=== PATIENT | female | born 1975 | race Caucasian/White ===

== ENCOUNTER 2019-01-27 06:18 | Emergency (ER) | payer SELFPAY ==
--- NOTE | 2019-01-27 06:38 | EDM.PDOC ---
<Eduardo Friedman - Last Filed: 01/27/19 09:24> ED HPI GENERAL MEDICAL PROBLEM - General Chief Complaint: Gastrointestinal Problem Stated Complaint: [facility] Time Seen by Provider: 01/27/19 06:30 - Related Data Allergies Allergy/AdvReac Type Severity Reaction Status Date / Time No Known Allergies Allergy Verified 01/27/19 06:27 Home Meds: Home Meds . [No Known Home Meds] 01/27/19 [History] Course - Vital Signs Last Recorded V/S: Last Vital Signs Temp 96.5 F 01/27/19 06:22 Pulse 82 01/27/19 06:22 Resp 20 01/27/19 06:22 BP 99/64 01/27/19 06:22 Pulse Ox 100 01/27/19 06:22 Orthostatic Blood Pressure [ 99/68 Sitting] Orthostatic Blood Pressure [ 88/60 Supine] - Orders/Labs/Meds Orders: Active Orders 24 hr Category Date Time Status Orthostatic Vital Signs [RC] ASDIRECTED Care 01/27/19 06:58 Active Labs: Laboratory Tests 01/27/19 01/27/19 01/27/19 Range/Units 07:00 07:00 07:00 WBC 11.47 H (3.98-10.04) K/mm3 RBC 4.07 (3.98-5.22) M/mm3 Hgb 12.6 (11.2-15.7) gm/L Hct 36.6 (34.1-44.9) % MCV 89.9 (79.4-94.8) fl MCH 31.0 (25.6-32.2) pg MCHC 34.4 (32.2-35.5) g/dl RDW Std Deviation 39.7 (36.4-46.3) fL Plt Count 181 L (182-369) K/mm3 MPV 9.7 (9.4-12.3) fl Neut % (Auto) 92.2 H (34.0-71.1) % Lymph % (Auto) 3.5 L (19.3-51.7) % Harmon % (Auto) 3.7 L (4.7-12.5) % Eos % (Auto) 0.3 L (0.7-5.8) Baso % (Auto) 0.1 (0.1-1.2) % Neut # (Auto) 10.59 H (1.56-6.13) K/mm3 Lymph # (Auto) 0.40 L (1.18-3.74) K/mm3 Harmon # (Auto) 0.42 H (0.24-0.36) K/mm3 Eos # (Auto) 0.03 L (0.04-0.36) K/mm3 Baso # (Auto) 0.01 (0.01-0.08) K/mm3 Manual Slide Review Abnormal smear Sodium 141 (136-145) mEq/L Potassium 3.5 (3.5-5.1) mEq/L Chloride 106 (98-107) mEq/L Carbon Dioxide 26 (21-32) mEq/L Anion Gap 12.5 (5-15) BUN 12 (7-18) mg/dL Creatinine 0.6 (0.55-1.02) mg/dL Est Cr Clr Drug Dosing 95.42 mL/min Estimated GFR (MDRD) > 60 (>60) mL/min BUN/Creatinine Ratio 20.0 H (14-18) Glucose 112 H (74-106) mg/dL Calcium 8.2 L (8.5-10.1) mg/dL Total Bilirubin 0.5 (0.2-1.0) mg/dL AST 20 (15-37) U/L ALT 23 (14-59) U/L Alkaline Phosphatase 55 (46-116) U/L Total Protein 6.2 L (6.4-8.2) g/dl Albumin 3.5 (3.4-5.0) g/dl Globulin 2.7 gm/dL Albumin/Globulin Ratio 1.3 (1-2) Lipase 139 (73-393) U/L HCG, Qual Negative (NEGATIVE) Meds: Medications Discontinued Medications Generic Name Dose Route Start Last Admin Trade Name Freq PRN Reason Stop Dose Admin Sodium Chloride 1,000 mls @ 1,000 mls/hr 01/27/19 06:45 01/27/19 06:49 Normal Saline IV 1,000 mls/hr ASDIRECTED [facility] Administration - Re-Assessments/Exams Free Text/Narrative Re-Assessment/Exam: 01/27/19 09:[address] Mcleod. Her WBC was slightly elevated at 11.47. Her Hgb was normal at 12.6. Her HCG was negative. Her lipase was negative. She feels much better. She got up and walked around and she is comfortable leaving. She will be in an air conditioned car today and then a cabin. Departure - Departure Time of Disposition: 09:30 Disposition: Home, Self-Care 01 Condition: Good Clinical Impression: Nausea & vomiting Qualifiers: Vomiting type: unspecified Vomiting Intractability: non-intractable Qualified Code(s): R11.2 - Nausea with vomiting, unspecified Syncope Qualifiers: Syncope type: unspecified Qualified Code(s): R55 - Syncope and collapse - Discharge Information *PRESCRIPTION DRUG MONITORING PROGRAM REVIEWED*: Not Applicable *COPY OF PRESCRIPTION DRUG MONITORING REPORT IN PATIENT [place]: Not Applicable Instructions: Vomiting, Adult, Nausea, Adult, [id number], Syncope, Easy-to- Read Referrals: PCP,Not In Area [Primary Care Provider] - Forms: ED Department Discharge Additional Instructions: Drink plenty of fluids today. Get some rest and try to stay out of the heat for a couple days. Please seek help if you feel worse. - My Orders Last 24 Hours: My Active Orders 01/27/19 06:58 Orthostatic Vital Signs [RC] ASDIRECTED - Assessment/Plan Last 24 Hours: My Active Orders 01/27/19 06:58 Orthostatic Vital Signs [RC] ASDIRECTED <Eduardo Mcleod - Last Filed: 01/27/19 19:07> ED HPI GENERAL MEDICAL PROBLEM - General Source of Information: Reports: Patient History Limitations: Reports: No Limitations - History of Present Illness INITIAL COMMENTS - FREE TEXT/NARRATIVE: 43-year-old female. She was outside all day yesterday though she says she was drinking lots of fluids. She and her family have been camping in [place]. Apparently this morning around 2 AM she awoke felt nauseated when out of the tent and fainted. When she awoke she had nausea and vomiting and also diarrhea. Her came out and cleaned her up she had more nausea and vomiting. And he brought her inside the tent while lying down she passed out twice. He then had some more nausea vomiting and diarrhea in the tent. An ambulance was called and they brought her to the ER. The patient doesn't think she is dehydrated however she says she has a very sensitive stomach. Normally she eats something abnormal she gets cramping but she had no cramping with nausea and vomiting and diarrhea. She does have gluten sensitivity however it doesn't normally cause nausea and vomiting or diarrhea just cause abdominal cramps and headache. When she arrived in the ER her blood pressure was 90/56. She apparently had some additional stool while she was being transported to the ER by the ambulance. She denies any recent illnesses no colds no cough no fever or chills. She denies being because she uses a contraceptive. No history of alcohol consumption or pancreatic problems. Past Medical History [employer] History: Reports: Social & Family History - Tobacco Use Smoking Status *Q: Never Smoker - Caffeine Use Caffeine Use: Reports: None - Recreational Drug Use Recreational Drug Use: No ED ROS GENERAL - Review of Systems Review Of Systems: See Below Constitutional: Reports: Malaise, Fatigue. Denies: Fever, Chills HEENT: Reports: No Symptoms Respiratory: Denies: Shortness of Breath, Cough Cardiovascular: Denies: Chest Pain Endocrine: Reports: No Symptoms GI/Abdominal: Reports: Diarrhea, Nausea, Vomiting. Denies: Abdominal Pain : Denies: Dysuria Musculoskeletal: Reports: No Symptoms Skin: Reports: No Symptoms Neurological: Reports: No Symptoms Psychiatric: Reports: No Symptoms Hematologic/Lymphatic: Reports: No Symptoms ED EXAM, GI/ABD - Physical Exam Exam: See Below Exam Limited By: No Limitations General Appearance: Alert, WD/WN, No Apparent Distress, Other (She denies any nausea presently her abdominal cramps) Eyes: Bilateral: Normal Appearance Ears: Normal External Exam, Normal Canal, Normal TMs Nose: Normal Inspection Throat/Mouth: Normal Inspection, Normal Lips, Normal Voice, No Airway Compromise , Other (Mucous membranes are moist) Head: Normocephalic Neck: Supple Respiratory/Chest: No Respiratory Distress, Lungs Clear, Normal Breath Sounds Cardiovascular: Regular Rate, Rhythm, No Murmur. No: Tachycardia GI/Abdominal Exam: Soft, Non-Tender Back Exam: Full Range of Motion Extremities: Normal Inspection, Normal Range of Motion Neurological: Alert, Oriented Psychiatric: Normal Affect, Normal Mood Skin Exam: Warm, Dry Course - Orders/Labs/Meds Labs: Laboratory Tests 01/27/19 01/27/19 01/27/19 Range/Units 07:00 07:00 07:00 WBC 11.47 H (3.98-10.04) K/mm3 RBC 4.07 (3.98-5.22) M/mm3 Hgb 12.6 (11.2-15.7) gm/L Hct 36.6 (34.1-44.9) % MCV 89.9 (79.4-94.8) fl MCH 31.0 (25.6-32.2) pg MCHC 34.4 (32.2-35.5) g/dl RDW Std Deviation 39.7 (36.4-46.3) fL Plt Count 181 L (182-369) K/mm3 MPV 9.7 (9.4-12.3) fl Neut % (Auto) 92.2 H (34.0-71.1) % Lymph % (Auto) 3.5 L (19.3-51.7) % Harmon % (Auto) 3.7 L (4.7-12.5) % Eos % (Auto) 0.3 L (0.7-5.8) Baso % (Auto) 0.1 (0.1-1.2) % Neut # (Auto) 10.59 H (1.56-6.13) K/mm3 Lymph # (Auto) 0.40 L (1.18-3.74) K/mm3 Harmon # (Auto) 0.42 H (0.24-0.36) K/mm3 Eos # (Auto) 0.03 L (0.04-0.36) K/mm3 Baso # (Auto) 0.01 (0.01-0.08) K/mm3 Manual Slide Review Abnormal smear Sodium 141 (136-145) mEq/L Potassium 3.5 (3.5-5.1) mEq/L Chloride 106 (98-107) mEq/L Carbon Dioxide 26 (21-32) mEq/L Anion Gap 12.5 (5-15) BUN 12 (7-18) mg/dL Creatinine 0.6 (0.55-1.02) mg/dL Est Cr Clr Drug Dosing 95.42 mL/min Estimated GFR (MDRD) > 60 (>60) mL/min BUN/Creatinine Ratio 20.0 H (14-18) Glucose 112 H (74-106) mg/dL Calcium 8.2 L (8.5-10.1) mg/dL Total Bilirubin 0.5 (0.2-1.0) mg/dL AST 20 (15-37) U/L ALT 23 (14-59) U/L Alkaline Phosphatase 55 (46-116) U/L Total Protein 6.2 L (6.4-8.2) g/dl Albumin 3.5 (3.4-5.0) g/dl Globulin 2.7 gm/dL Albumin/Globulin Ratio 1.3 (1-2) Lipase 139 (73-393) U/L HCG, Qual Negative (NEGATIVE) - Re-Assessments/Exams Free Text/Narrative Re-Assessment/Exam: 01/27/19 06:53 Lying down blood pressure was 88/60 with pulse of 69 sitting up was 99/68 with pulse of 73 and she got lightheaded. 01/27/19 07:00 Dr. Friedman will be taking over care of the patient.
[2019-01-27] MEDS ORDERED: Sodium Chloride 0.9% 1,000 ML IV SCH (06:45)
== END 2019-01-27 09:35 | disposition home or self-care (01) ==
LOC: JD.ED 06:18
DX: R55 Syncope and collapse (principal); R11.2 Nausea with vomiting, unspecified; R19.7 Diarrhea, unspecified
CPT/HCPCS: 36415; 80053; 83690; 84703; 85025; 96360; 99284; J7040; 99283